=== PATIENT | female | born 1950 | race Caucasian/White ===

== ENCOUNTER 2018-06-03 05:56 | Day surgery (SDC) | payer OTHER, MEDICARE ==
[~2018-06-03 05:56] MED LIST: LIDOCAINE 1% 2 ML INJ ID PRN; LR 1,000 ML IV ONE; ceFAZolin 2 GM/DEXTROSE 100 ML IV ONE
[2018-06-03] MEDS ORDERED: BUPIVACAINE 0.25% 30 ML SDV ONE (06:23)
[2018-06-03] MEDS ORDERED: EPINEPHrine 1 MG/ML INJ ONE (06:23)
[2018-06-03] MEDS ORDERED: BUPIVACAINE/EPI 0.5% 30 ML SDV ONE (06:23)
[2018-06-03] MEDS ORDERED: BACITRACIN 50,000 UNITS/10 ML SYR IRR ONE (06:23)
--- NOTE | 2018-06-03 07:03 | PDANEPAE ---
ANE History of Present Illness hammer toe repair, R ANE Past Medical History - Cardiovascular History Hx Hypertension: Yes Hx Arrhythmias: No Hx Chest Pain: No Hx Coronary Artery / Peripheral Vascular Disease: No Hx CHF / Valvular Disease: No Hx Palpitations: No Cardiovascular History Comment: PCP MONITORS BP MEDS. HPL - Pulmonary History Hx COPD: No Hx Asthma/Reactive Airway Disease: No Hx Recent Upper Respiratory Infection: No Hx Oxygen in Use at Home: No Hx Sleep Apnea: No Sleep Apnea Screening Result - Last Documented: Negative - Neurologic History Hx Cerebrovascular Accident: No Hx Seizures: No Hx Dementia: No - Endocrine History Hx Diabetes: No Obesity: no - Renal History Hx Renal Disorders: No - Liver History Hx Hepatic Disorders: No - Neurological & Psychiatric Hx Hx Neurological and Psychiatric Disorders: Yes Neurological / Psychiatric History Comment: ANXIETY. DEPRESSION - Cancer History Hx Cancer: No - Congenital Disorder History Hx Congenital Disorders: No - GI History GERD: no Hx Gastrointestinal Disorders: No - Other Health History Other Health History: PSORIASIS ON LEFT ELBOW. psoriatic arthritis. - Chronic Pain History Chronic Pain: No - Surgical History Prior Surgeries: RIGHT BUNIONECTOMY. RIGHT MENISCUS REPAIR. ANE Review of Systems Review of Systems: - Exercise capacity METS (RN): 4 METS ANE Patient History - Allergies Allergies/Adverse Reactions: aspirin Allergy (Verified 05/27/18 14:17) Swelling/neck,face,throat - Home Medications Home Medications: FLUoxetine 08/19/16 [Last Taken 08/21/16 06:00] Lisinopril 08/19/16 [Last Taken 06/02/18 09:00] SIMVASTATIN 08/19/16 [Last Taken 06/02/18 09:00] - NPO status NPO Since - Liquids (Date): 06/02/18 NPO Since - Liquids (Time): 22:00 NPO Since - Solids (Date): 06/02/18 NPO Since - Solids (Time): 18:00 - Anes Hx Anes Hx: no prior problems - Smoking Hx Smoking Status: Never smoked - Alcohol Use Alcohol Use: None - Family Anes Hx Family Anes Hx: none Family Hx Anesthesia Complications: NONE ANE Labs/Vital Signs - Vital Signs Blood Pressure: 122/75 Heart Rate: 67 Respiratory Rate: 18 O2 Sat (%): 94 Height: 157.48 cm Weight: 56.245 kg ANE Physical Exam - Airway Neck exam: decreased ROM Mallampati Score: Class 3 Mouth exam: normal dental/mouth exam (upper front caps) - Pulmonary Pulmonary: clear to auscultation - Cardiovascular Cardiovascular: regular rate and rhythym - ASA Status ASA Status: II ANE Anesthesia Plan Anesthesia Plan: GA with mask
[2018-06-03] MEDS ORDERED: MIDAZOLAM 2 MG/2 ML VIAL IVP ONE (07:04)
[2018-06-03] MEDS ORDERED: fentaNYL 100 MCG/2 ML INJ ONE (07:10)
[2018-06-03] MEDS ORDERED: PROPOFOL 200 MG/20 ML VIAL ONE ×3 (07:11→08:36)
--- NOTE | 2018-06-03 07:15 | PDHPUP ---
History & Physical Update H&P update statement: This history and physical update is based on an assessment of the patient which was completed after admission or registration (within 24 hours), but prior to the surgery/procedure. H&P update: no change in patient's condition since H&P completed
[2018-06-03] MEDS ORDERED: NALOXONE HCL 0.4 MG/ML INJ IVP PRN (08:43)
[2018-06-03] MEDS ORDERED: HYDROCODONE/APAP 5/325 TAB PO PRN (08:43)
[2018-06-03] MEDS ORDERED: ONDANSETRON 4 MG/2 ML VIAL IVP PRN (08:43)
[2018-06-03] MEDS ORDERED: fentaNYL 100 MCG/2 ML INJ IVP PRN (08:43)
[2018-06-03] MEDS ORDERED: oxyCODONE IR 5 MG TAB PO PRN (08:43)
--- NOTE | 2018-06-03 09:03 | POSTOPPROG ---
Post Op Note Date of Operation: 06/03/18 Surgeon: Eder Maki Graduate Teaching Assistant: none Anesthesiologist: Sage Anesthesia: IV Sedation Pre-op Diagnosis: bunion and hammertoe right Post-op Diagnosis: same Indication: pain Procedure: Walsh, Jair, hammertoe repair Findings: none Inf/Abcess present in the surg proc area at time of surgery?: No Depth: Deep Incisional (Fascial) EBL: Minimal Total fluids administered: 20cc 9/1 ratio .25% marcaine plain and .25% marcaine with epi Complications: none Drains: Other (none)
--- NOTE | 2018-06-03 09:54 | POSTANESTH ---
Post Anesthetic Evaluation Cardiovascular Status: Normal, Stable Respiratory Status: Normal, Stable Level of Consciousness/Mental Status: Can Participate in Eval Pain Control: Adequate, Prn Tx Ordered Nausea/Vomiting Control: Adequate, Prn Tx Ordered Complications Possibly Related to Anesthesia: None Noted
[2018-06-03 10:04] VITALS: BP 134/81
--- NOTE | 2018-06-03 11:17 | GOP ---
[f rep st] OPERATIVE REPORT DATE OF OPERATION: 06/03/2018 SURGEON: Eder Maki DPM FORESTRY LABORER: None. ANESTHESIA: Local with MAC. ANESTHESIOLOGIST: Dr. Cazares PREOPERATIVE DIAGNOSIS: 1. Hallux abductovalgus, right. 2. Hallux interphalangeus, right. 3. Hammertoe, right 2nd digit. POSTOPERATIVE DIAGNOSIS: 1. Hallux abductovalgus, right. 2. Hallux interphalangeus, right. 3. Hammertoe, right 2nd digit. PROCEDURE PERFORMED: 1. Modified Walsh bunionectomy, right. 2. Jair osteotomy, right. 3. Hammertoe correction, right 2nd digit by proximal interphalangeal joint fusion. FINDINGS: ESTIMATED BLOOD LOSS: Minimal. DESCRIPTION OF PROCEDURE: The patient presented to [facility], was cleared for the intended procedure. The patient was taken to the operating room and placed on the table in supine position. IV sedation was started per the anesthesia department. Foot was anesthetized in an infiltrative nerve block fashion. Foot was prepped, scrubbed and draped in the usual sterile fashion. Following exsanguination by elevation and Esmarch bandage, pneumatic ankle tourniquet was inflated to 225 mmHg. At this time, attention was directed to the dorsal aspect of the right 1st ray where a linear incision was made starting just proximal to the metatarsophalangeal joint and carried distal past the level of the hallux interphalangeal joint. Incision was made medial to the extensor hallucis longus tendon. The incision was carried deep utilizing sharp and blunt dissection, making sure that all the vascular structures were identified and retracted. At this time, all superficial bleeders were cauterized. The incision was carried down deep to the level of the metatarsophalangeal joint capsule. At this time, an inverted L capsulotomy was performed. Capsular tissue was dissected free medially and laterally to allow for adequate exposure to the head of the metatarsal and base into the proximal phalanx. At this time, utilizing a sagittal saw, the hypertrophied medial eminence from the metatarsal head was resected and removed. The area was smoothed with a bone rasp. The area was flushed with copious amounts of sterile saline at this time. The previous metatarsal osteotomy with internal fixation was left alone as the intermetatarsal angle still seemed reasonable. At this time, attention was redirected to the hallux though where the hallux interphalangeus was identified. At this point, 2 osteotomies were performed running from proximal lateral to distal medial, making sure to leave the lateral cortex of bone intact and resulting in a 2 mm wedge of bone medially. The wedge of bone was dissected free and removed. The temporary bone clamp was inserted in the areas prepped for insertion of a 2.7 cortical screw. Utilizing strict AO technique, a 14 mm screw was introduced. Good compression was obtained, and the temporary bone clamp was removed. C-arm fluoroscopy at this time showed a rectus alignment to the metatarsophalangeal joint with space between the 1st and 2nd digits. The area was again flushed with copious amounts of sterile saline before capsule was closed with 2-0 and 3-0 Vicryl, followed by periosteal closure over the proximal phalanx with 5-0 Vicryl, subcutaneous closure with 5-0 Vicryl and skin closure with 5-0 nylon. Attention was then redirected to the 2nd digit where a linear incision was made over the proximal interphalangeal joint. This incision was again carried deep utilizing sharp and blunt dissection, making sure that all neurovascular structures were identified and retracted. At this time, all superficial bleeders were cauterized. The incision was carried down to the level of the proximal interphalangeal joint. At this time, the extensor apparatus was sharply transected at the level of the joint and dissected free proximally to allow for adequate exposure to the head of the proximal phalanx and base of the intermediate phalanx. It was decided at this time that the hammertoe would be corrected with a fusion utilizing the 1d4 Pty ToeTac system. The conical reamers were utilized to ream the head of the proximal phalanx and base of the intermediate phalanx appropriately. They were then test fit, and fit together well. It was decided after the fluoroscopy with trial sizers that the small implant would be utilized. Both sides of the fusion site were drilled appropriately before the implant was placed into the base of the intermediate phalanx and then press-fit into the head of the proximal phalanx. Good compression was obtained, and the area was again flushed with copious amounts of sterile saline. The extensor apparatus was reapproximated with 3-0 Vicryl, followed by subcutaneous closure with 5-0 Vicryl and skin closure with 5-0 nylon. All areas were then dressed with Betadine-soaked Adaptics, 4x4s, Bre, and Coban, and the pneumatic ankle tourniquet was released for a total tourniquet time of 66 minutes. The patient was taken to the recovery room, vital signs stable, vascular supply intact to digits 1 through 5 bilaterally. PATHOLOGY: None. HEMOSTASIS: PAT at 225 mmHg by 66 minutes. MATERIALS: 2.7 cortical screw by 14 mm. 1d4 Pty ToeTac, small, 0 degrees. INJECTABLES: 20 cc 9:1 ratio of 0.25% Marcaine plain, 0.25% Marcaine with epi preoperatively. COMPLICATIONS: None. /[id number]/MODL MTDD
== END 2018-06-03 10:50 | disposition home or self-care (01) ==
LOC: FSGY 05:56
PROVIDERS: ATTEND Podiatrist Primary Podiatric Medicine
DX: M20.11 Hallux valgus (acquired), right foot (principal); M20.41 Other hammer toe(s) (acquired), right foot
CPT/HCPCS: C1713; J0171; J0690; J2250; J2704; J3010

== ENCOUNTER 2018-10-14 07:34 | Day surgery (SDC) | payer OTHER, MEDICARE ==
[~2018-10-14 07:34] MED LIST changes: +BACITRACIN 50,000 UNITS/10 ML SYR IRR ONE; +BUPIVACAINE 0.25% 10 ML SDV ONE; +BUPIVACAINE/EPI 0.25% 30 ML SDV ONE; -LIDOCAINE 1% 2 ML INJ ID PRN; -LR 1,000 ML IV ONE
[2018-10-14] MEDS ORDERED: LR 1,000 ML IV ONE (07:37)
--- NOTE | 2018-10-14 07:37 | PDANEPAE ---
ANE History of Present Illness here for foot hammertoe ANE Past Medical History - Cardiovascular History Hx Hypertension: Yes Hx Arrhythmias: No Hx Chest Pain: No Hx Coronary Artery / Peripheral Vascular Disease: No Hx CHF / Valvular Disease: No Hx Palpitations: No Cardiovascular History Comment: PCP MANAGES HTN/RX - Pulmonary History Hx COPD: No Hx Asthma/Reactive Airway Disease: No Hx Recent Upper Respiratory Infection: No Hx Oxygen in Use at Home: No Hx Sleep Apnea: No Sleep Apnea Screening Result - Last Documented: Negative - Neurologic History Hx Cerebrovascular Accident: No Hx Seizures: No Hx Dementia: No - Endocrine History Hx Diabetes: No - Renal History Hx Renal Disorders: No - Liver History Hx Hepatic Disorders: No - Neurological & Psychiatric Hx Hx Neurological and Psychiatric Disorders: Yes Neurological / Psychiatric History Comment: ANXIETY. DEPRESSION - Cancer History Hx Cancer: No - Congenital Disorder History Hx Congenital Disorders: No - GI History Hx Gastrointestinal Disorders: No Gastrointestinal History Comment: CURRENTLY HAVING SOME NAUSEA/VOMITING 10/07/18 - Other Health History Other Health History: DIZZINESS PAST FEW DAYS. PSORIASIS ON LEFT ELBOW. psoriatic arthritis. - Chronic Pain History Chronic Pain: Yes (RT FOOT TOE) - Surgical History Prior Surgeries: LT BUNIONECTOMY WITH HAMMER TOE REPAIR 06/03/18. RIGHT BUNIONECTOMY. RIGHT MENISCUS REPAIR. ANE Review of Systems Review of systems is: negative Review of Systems: - Exercise capacity Exercise capacity: >=4 METS METS (RN): 4 METS ANE Patient History - Allergies Allergies/Adverse Reactions: aspirin Allergy (Verified 05/27/18 14:17) Swelling/neck,face,throat - Home Medications Home medications: home medication list seen and reviewed Home Medications: FLUoxetine DAILY 08/19/16 [Last Taken 10/13/18] Lisinopril DAILY 08/19/16 [Last Taken 10/13/18] SIMVASTATIN HS 08/19/16 [Last Taken 10/13/18] Ondansetron HCl PRN 10/07/18 [Last Taken 1 Week Ago ~10/07/18] - NPO status NPO Status: no food or drink >8 hours - Smoking Hx Smoking Status: Never smoked - Family Anes Hx Family Hx Anesthesia Complications: NONE ANE Labs/Vital Signs - Vital Signs Vital Signs: reviewed preoperatively; see RN documention for details Height: 156.21 cm Weight: 56.245 kg ANE Physical Exam - Airway Neck exam: FROM Mallampati Score: Class 1 - Pulmonary Pulmonary: no respiratory distress - Cardiovascular Cardiovascular: regular rate and rhythym - ASA Status ASA Status: II ANE Anesthesia Plan Anesthesia Plan: GA with mask
[2018-10-14] MEDS ORDERED: MIDAZOLAM 2 MG/2 ML VIAL IVP ONE ×2 (07:47→09:42)
[2018-10-14] MEDS ORDERED: HYDROmorphONE/DILAUDID 2 MG/ML INJ IVP PRN (07:47)
[2018-10-14] MEDS ORDERED: NALOXONE HCL 0.4 MG/ML INJ IVP PRN ×2 (07:47→09:42)
[2018-10-14] MEDS ORDERED: fentaNYL 100 MCG/2 ML INJ IVP PRN ×2 (07:47→09:42)
[2018-10-14] MEDS ORDERED: LR 500 ML IV PRN ×2 (07:47→09:42)
[2018-10-14] MEDS ORDERED: ONDANSETRON 4 MG/2 ML VIAL IVP PRN ×2 (07:47→09:42)
[2018-10-14] MEDS ORDERED: NS 500 ML IV PRN ×2 (07:47→09:42)
[2018-10-14] MEDS ORDERED: DEXAMETHASONE 4 MG/ML VIAL IVP PRN (07:47)
[2018-10-14] MEDS ORDERED: PROPOFOL/EMULSION 500 MG/50 ML BOTTLE IV ONE (08:05)
[2018-10-14] MEDS ORDERED: fentaNYL 100 MCG/2 ML INJ ONE (08:06)
[2018-10-14] MEDS ORDERED: PROPOFOL 200 MG/20 ML VIAL ONE (09:04)
--- NOTE | 2018-10-14 09:29 | POSTOPPROG ---
Post Op Note Date of Operation: 10/14/18 Surgeon: Eder Maki Technical Programs Manager: none Anesthesiologist: darin Anesthesia: IV Sedation Pre-op Diagnosis: painful hardware r hallux and hammertoe r 2 Post-op Diagnosis: same Indication: pain Procedure: hardwere removal and hammertoe correction Findings: none Inf/Abcess present in the surg proc area at time of surgery?: No Depth: Deep Incisional (Fascial) EBL: Minimal Total fluids administered: 20cc 9/1 .25% marcaine plain and with epi Drains: Other (none)
[2018-10-14] MEDS ORDERED: HYDROCODONE/APAP 5/325 TAB PO PRN (09:42)
[2018-10-14] MEDS ORDERED: oxyCODONE IR 5 MG TAB PO PRN (09:42)
[2018-10-14] MEDS ORDERED: ALBUTEROL 3 ML DEYVIAL IH PRN (09:42)
[2018-10-14] MEDS ORDERED: oxyCODONE IR 5 MG TAB ONE (10:57)
[2018-10-14 11:05] VITALS: BP 120/70
--- NOTE | 2018-10-16 01:15 | GOP ---
DATE OF OPERATION: 10/14/2018 SURGEON: Eder Maki DPM FILM COLOR TESTER: None. ANESTHESIA: Local with MAC. ANESTHESIOLOGIST: Dr. Ott. PREOPERATIVE DIAGNOSIS: 1. Painful retained hardware, right hallux proximal phalanx. 2. Painful retained hardware, right 2nd digit. 3. Hammertoe right 2nd digit. POSTOPERATIVE DIAGNOSIS: 1. Painful retained hardware, right hallux proximal phalanx. 2. Painful retained hardware, right 2nd digit. 3. Hammertoe right 2nd digit. PROCEDURE PERFORMED: 1. Hammertoe repair, right 2nd digit. 2. Removal of painful retained hardware, right hallux proximal phalanx. 3. Removal of painful retained hardware, right 2nd digit. FINDINGS: ESTIMATED BLOOD LOSS: Minimal. DESCRIPTION OF PROCEDURE: The patient presented to [facility], was cleared for the int ended procedure. Patient was taken to the operating room and placed on the table in supine position. IV sedation was started per the anesthesia department. Foot was anesthetized and infiltrative in n erve block fashion. Foot was prepped, scrubbed, and draped in usual sterile fashion. Following exsa nguination by elevation, Esmarch bandage, pneumatic ankle tourniquet was inflated to 225 mmHg. At th is time attention was directed to the medial aspect of the right hallux where utilizing C-arm fluoros copy, the retained hardware was identified. A linear incision was made, and the incision was carried deep utilizing sharp, blunt dissection, making sure that all neurovascular structures were identifie d and retracted at this time. All superficial bleeders were cauterized. The incision was carried do wn deep to the level of the retained hardware. The retained hardware was removed without incident. The area was flushed with copious amounts of sterile saline. Periosteum was reapproximated over the area with 5-0 Vicryl followed by subcutaneous closure with 5-0 Vicryl and skin closed with 5-0 nylon. Upon completion of this, attention was redirected to the right 2nd digit where a linear incision wa s made over the proximal interphalangeal joint. The incision was carried deep utilizing sharp, blunt dissection, making sure that all neurovascular structures were identified and retracted. At this ti me all superficial bleeders were cauterized. The incision was carried down deep to the level of the extensor apparatus. This was sharply transected at the level of the proximal interphalangeal joint a nd dissected free proximally to allow for adequate visualization to the site. At this time, it was n oted that there was incomplete bone healing that had occurred at the proximal interphalangeal joint f usion site previously. The implant was still in place and had not failed. The decision was made billy t the implant needed to be removed and the area needed to be revised. A sagittal saw was utilized to cut through the implant. A threaded K-wire was then placed into the implant on both sides of the fu yoana site and then reversed out removing the implant from the area. Upon completion of this, it was decided that the area would be refixated with the HammerLock implant. The area was drilled appropria tely and broached appropriately before being measured as a large 0 degree implant. I decided that be fore doing so I would freshen up both sides of the osteotomy and fusion site with a sagittal saw to h ealthy bone. Upon completion of this, the HammerLock large 0 degree implant was placed into the prox imal phalanx appropriately before putting the intermediate phalanx into the implant as well. Good co mpression was obtained, and C-arm fluoroscopy showed excellent alignment to the implant. The area wa s again flushed with copious amounts of sterile saline before the extensor apparatus was reapproximat ed with 3-0 Vicryl followed by subcutaneous closure with 5-0 Vicryl and skin closure with 5-0 nylon. All areas were dressed with Betadine-soaked Adaptics, 4x4s, Bre, and Coban. The patient was taken to recovery room, vital signs stable, vascular supply intact digits 1 through 5 bilaterally after th e pneumatic ankle tourniquet had been released for a total tourniquet time of 54 minutes. PATHOLOGY: None. HEMOSTASIS: PAT at 225 mmHg by 54 minutes. MATERIALS: HammerLock large 0 degrees. INJECTABLES: 20 cc 9:1 ratio 0.25% Marcaine plain 0.25% Marcaine with epinephrine preoperatively. COMPLICATIONS: None. /[id number]/MODL
== END 2018-10-14 11:32 | disposition home or self-care (01) ==
LOC: FSGY 07:34
PROVIDERS: ATTEND Podiatrist Primary Podiatric Medicine
DX: T84.84XA Pain due to internal orthopedic prosthetic devices, implants and grafts, initial encounter (principal); M20.41 Other hammer toe(s) (acquired), right foot; M79.671 Pain in right foot; R60.0 Localized edema; F32.9 Major depressive disorder, single episode, unspecified; F41.9 Anxiety disorder, unspecified; I10 Essential (primary) hypertension; Z87.891 Personal history of nicotine dependence
CPT/HCPCS: C1713; J0690; J2250; J2704; J3010